=== PATIENT | male | born 1990 ===

== ENCOUNTER → 2024-11-14 | Outpatient (CLI) | payer OTHER, SELFPAY | END | disposition home or self-care (01) | LOC: COPL 16:27 → SLDO 16:27 | PROVIDERS: PCP Psychiatry & Neurology Psychiatry; Referring Provider Psychiatry & Neurology Psychiatry; Visit Provider Psychiatry & Neurology Psychiatry | DX: L02.32 Furuncle of buttock (principal) | CPT/HCPCS: 87081 ==